=== PATIENT | male | born 1985 | race Caucasian/White ===

== ENCOUNTER 2017-07-19 16:47 | Emergency (ER) | payer BC, OTHER ==
[2017-07-19] MEDS ORDERED: OXYMETAZOLINE NASAL SPRAY NAS STA (16:57)
--- NOTE | 2017-07-19 17:01 | ED Physician Documentation ---
History of Present Illness - Stated complaint Stated Complaint: NOSE BLEED - Chief complaint Chief Complaint: Heent - History obtained from History obtained from: Patient, Family - History of Present Illness Timing: Today, How many minutes ago (15) Pain level max: 0 Pain level now: 0 Improved by: pressure Worsened by: nothing - Additonal information Additional information: Patient is a 31-year-old male who had sinus surgery a week ago at [facility]. States he stuck his finger in his nose tonight and picked the scab which came off and then he began to have a nosebleed. Came in to the emergency department for evaluation. No lightheadedness, dizziness, syncope. Review of Systems Nose: reports: Epistaxis Neurologic: denies: Syncope, Head injury PD PAST MEDICAL HISTORY - Past Medical History Past Medical History: Yes Respiratory: Asthma - Past Surgical History Past Surgical History: Yes - Present Medications Home Medications: Ambulatory Orders Medication Instructions Recorded Confirmed Mometasone/Formoterol [Dulera 200 8.8 gm IH 07/19/17 Mcg/5 Mcg Inhaler] Montelukast [Singulair] 10 mg PO QPM 07/19/17 07/19/17 Sulfamethox/Trimeth 800/160 1 tab PO BID 07/19/17 07/19/17 [Bactrim Ds] - Allergies Allergies/Adverse Reactions: Allergies Allergy/AdvReac Type Severity Reaction Status Date / Time theophylline Allergy Unknown Verified 07/19/17 16:52 - Social History Does the pt smoke?: No Smoking Status: Never smoker PD ED PE NORMAL - Vitals Vital signs reviewed: Yes - General General: Alert and oriented X 3, No acute distress - HEENT HEENT: Other (dried blood in the R nare. no active bleeding. ) - Derm Derm: Warm and dry - Neuro Neuro: Alert and oriented X 3 - Psych Psych: Normal mood, Normal affect Results - Vitals Vitals: Vital Signs - 24 hr 07/19/17 16:54 Temperature 37.2 C Heart Rate 83 Respiratory 16 Rate Blood Pressure 133/88 H O2 Saturation 99 Oxygen O2 Source Room air PD MEDICAL DECISION MAKING - ED course Complexity details: considered differential, d/w patient, d/w family ED course: Patient is a 31-year-old male who presents to the emergency department with epistaxis. No acute bleeding in the emergency department. Afrin was applied as well as pressure. We will have him follow-up with his surgeon as scheduled. Patient counseled regarding signs and symptoms for which I believe and urgent re-evaluation would be necessary. Patient with good understanding of and agreement to plan and is comfortable going home at this time This document was made in part using voice recognition software. While efforts are made to proofread this document, sound alike and grammatical errors may occur. Departure - Departure Disposition: 01 Home, Self Care Clinical Impression: Epistaxis Condition: Good Instructions: ED Nosebleed Follow-Up: Provider,Other [Primary Care Provider] - Within 1 week Comments: Return if you worsen. Do not pick or blow your nose for the next 3 days. Use the afrin twice daily for 3 days. If you start to bleed again, hold firm pressure under the cartilage of your nose for 10 minutes and tilt your head forward.
[2017-07-19 17:36] VITALS: BP 121/77
== END 2017-07-19 17:37 | disposition home or self-care (01) ==
LOC: ED 16:47
DX: R04.0 Epistaxis (principal); Z98.890 Other specified postprocedural states; J45.909 Unspecified asthma, uncomplicated
CPT/HCPCS: 99282; 99283; A9270